=== PATIENT | male | born 1945 | race Caucasian/White ===

== ENCOUNTER 2017-06-19 18:04 | Emergency (ER) | payer MEDICARE, OTHER ==
--- NOTE | 2017-06-19 18:51 | ERPHSYRPT ---
<JOCY CROWELL - Last Filed: 06/19/17 20:03> - History of Present Illness Time Seen by Provider: 06/19/17 18:32 Allergies/Adverse Reactions: No Known Drug Allergies Allergy (Verified 06/19/17 18:21) Home Medications: Ascorbic Acid [Vitamin C] 500 mg PO DAILY 07/09/14 [History] Aspirin [Ecotrin] 81 mg PO DAILY 07/09/14 [History] Bioflav,Lemon/Vit Bcomp,C [Lipo-Flavonoid Plus Caplet] 3 - 4 each PO DAILY PRN 07/09/14 [History] Ca Citrate/Mgox/Vit D3/B6/Min [Citracal Plus Tablet] 1 each PO DAILY 07/09/14 [ History] Cetirizine HCl [Zyrtec] 10 mg PO DAILY PRN PRN 07/09/14 [History] Glucosamine/Methylsulfonylmeth [Glucosamine-MSM 500-400 mg Cap] 1 each PO DAILY 07/09/14 [History] Guaifenesin [Mucinex] 600 mg PO BID PRN 07/09/14 [History] Lisinopril [Zestril] 10 mg PO DAILY 07/09/14 [History] Loratadine [Claritin] 10 mg PO DAILY PRN PRN 07/09/14 [History] Montelukast Sodium [Singulair] 10 mg PO DAILY 07/09/14 [History] Multivitamin [Multivitamins] 1 each PO DAILY 07/09/14 [History] Omeprazole [Prilosec] 20 mg PO DAILY 07/09/14 [History] Saw [place] 160 mg PO BID 08/18/14 [History] Atorvastatin Calcium 20 mg PO DAILY 06/19/17 [History] Krill/[place]-3/Dha/Epa/Lipids [Krill Oil 350 mg Softgel] 1 cap PO DAILY 06/19/17 [History] Lutein 20 mg PO DAILY 06/19/17 [History] Mometasone Furoate [Nasonex] 2 spray NS DAILY 06/19/17 [History] Nabumetone 2 tab PO DAILY 06/19/17 [History] - Nursing Vital Signs Nursing Vital Signs: Initial Vital Signs Temperature 97.8 F 06/19/17 18:14 Pulse Rate 60 06/19/17 18:14 Respiratory Rate 16 06/19/17 18:14 Blood Pressure 153/88 06/19/17 18:14 O2 Sat by Pulse Oximetry 95 06/19/17 18:14 Pain Scale Pain Intensity 0 - Radiology Exams Chest X-ray Interpretation: Interpreted by me, No Pneumonia Ordered Tests: Active Orders 24 hr Category Date Time Status EKG-ER Only STAT Care 06/19/17 18:55 Active IV Insertion STAT Care 06/19/17 18:55 Active CHEST 2 VIEWS (PA AND LAT) Stat Exams 06/19/17 18:55 Taken CBC W DIFF Stat Lab 06/19/17 18:20 Completed CMP Stat Lab 06/19/17 18:20 Completed TROPONIN Q3H Lab 06/19/17 18:20 Completed Lab/Rad Data: Laboratory Result Diagrams 06/19/17 18:20 06/19/17 18:20 Laboratory Results 06/19/17 06/19/17 06/19/17 Range/Units 18:20 18:20 18:20 WBC 9.3 (4.0-10.5) K/mm3 RBC 4.95 (4.1-5.6) M/mm3 Hgb 15.9 (12.5-18.0) gm/dl Hct 47.1 (42-50) % MCV 95.2 (78-100) fl MCH 32.1 H (26-32) pg MCHC 33.8 (32-36) g/dl RDW 12.9 (11.5-14.0) % Plt Count 163 (150-450) K/mm3 MPV 10.2 H (6-9.5) fl Gran % 44.1 (36.0-66.0) % Lymphocytes % 44.3 H (24.0-44.0) % Monocytes % 9.8 (0.0-12.0) % Eosinophils % 1.4 (0.00-5.0) % Basophils % 0.4 (0.0-0.4) % Basophils # 0.04 (0-0.4) Sodium 142 (136-145) mEq/L Potassium 4.1 (3.5-5.1) mEq/L Chloride 106 (98-107) mEq/L Carbon Dioxide 26.3 (21-32) mEq/L Anion Gap 13.5 (5-15) MEQ/L BUN 16 (9-20) mg/dL Creatinine 1.13 (0.55-1.30) mg/dl Estimated GFR > 60 ML/MIN Glucose 117 H (70-110) MG/DL Calcium 9.0 (8.5-10.1) mg/dL Total Bilirubin 1.50 H (0.2-1.0) mg/dL AST 26 (15-37) U/L ALT 27 (12-78) U/L Alkaline Phosphatase 73 (46-116) U/L Troponin I < 0.017 (0.000-0.056) ng/ml Serum Total Protein 7.4 (6.4-8.2) gm/dL Albumin 3.9 (3.4-5.0) g/dL - Progress Progress Note: 06/19/17 19:[address] CROWELL AT 1931: PERRL, EOMI, PHARYNX PINK, LUNGS CLEAR, NO CARDIAC RUB, ABDOMINAL B.S. NORMAL, NO ANKLE EDEMA, ALERT & COOPERATIVE. PT STATES HIS RIGHT ANTERIOR CHEST PAIN RADIATING TO THE RIGHT MID BACK STARTED 3 HOURS AGO, LASTED 20 MINUTES, WAS ABATED BY DRINKING COLD WATER AND HAS NOT RETURNED. - Departure Time of Disposition: 20:04 Departure Disposition: Home Clinical Impression: CHEST PAIN Condition: Stable Critical Care Time: No Referrals: JOSE BATRES MD [Primary Care Provider] - Instructions: Chest Pain Additional Instructions: FOLLOW UP WITH PRIVATE DOCTOR TOMORROW. <JOCY NOLASCO. - Last Filed: 06/20/17 07:09> - History of Present Illness Historian: patient Exam Limitations: no limitations Patient Subjective Stated Complaint: Pt states approx 45-60 minutes ago he had sudden onset of right sided chest pain that radiated to his back. He thought it might be something he ate. It went away after drinking a cup of ice water. He has had the pain intermittently since then. Denies any sob, n/v, or diaphoresis. Triage Nursing Assessment: PT alert and oriented x3. skin pink warm and dry. afebrile. heart tones RRR. lung sounds clear. no edema noted Physician History: The patient is a 71-year-old male with his complaining of one episode of central chest pain today while sitting at the computer. He had eaten spicy chicken about one hour before the chest pain. He's had many episodes of similar chest pain over the years. The chest pain has always been relieved by drinking ice cold water. He said the chest pain evaluated by physician who told him it was nothing related to his heart. The reason he comes in today is that his noticed that he was in pain. He currently has no pain. He was not short of breath. He was not nauseated. He was not sweating. His past medical history is significant for hypertension, high cholesterol, asthma, and allergies. He had a stress test many years ago that was negative. Timing/Duration: today, resolved prior to arrival, sudden Activities at Onset: none Quality: sharpness Location: central Chest Pain Radiation: no radiation Severity of Pain-Max: moderate Severity of Pain-Current: none Modifying Factors: Improves With: other (drinking cold water) Associated Symptoms: denies symptoms Prior Chest Pain/Cardiac Workup: non-cardiac, stress test Nitro Today/Relief: no nitro taken today Aspirin Treatment Today: no aspirin today Hx Tetanus, Diphtheria Vaccination/Date Given: Yes Hx Influenza Vaccination/Date Given: No Hx Pneumococcal Vaccination/Date Given: Yes - Review of Systems Constitutional: No Fever, No Chills Eyes: No Symptoms Ears, Nose, & Throat: No Symptoms Respiratory: No Cough, No Dyspnea Cardiac: Chest Pain Abdominal/Gastrointestinal: No Symptoms Genitourinary Symptoms: No Dysuria Musculoskeletal: No Back Pain, No Neck Pain Skin: No Rash Neurological: No Dizziness, No Focal Weakness, No Sensory Changes Psychological: No Symptoms Endocrine: No Symptoms Hematologic/Lymphatic: No Symptoms Immunological/Allergic: No Symptoms All Other Systems: Reviewed and Negative - Past Medical History Pertinent Past Medical History: Yes Neurological History: No Pertinent History ENT History: No Pertinent History Cardiac History: Hypertension Respiratory History: Sleep Apnea Endocrine Medical History: No Pertinent History Musculoskeletal History: Arthritis, Osteoarthritis GI Medical History: GERD, Gallbladder Disease, Hemorrhoids History: No Pertinent History Psycho-Social History: No Pertinent History Male Reproductive Disorders: No Pertinent History - Past Surgical History Past Surgical History: Yes Neuro Surgical History: No Pertinent History Cardiac: No Pertinent History Respiratory: No Pertinent History Gastrointestinal: Cholecystectomy Genitourinary: No Pertinent History Musculoskeletal: Other Male Surgical History: No Pertinent History Other Surgical History: Disc in neck repaired. Colonsocopies - Social History Smoking Status: Never smoker Exposure to second hand smoke: No Drug Use: none Patient Lives Alone: No - Physical Exam General Appearance: no apparent distress, alert Eye Exam: PERRL/EOMI, eyes nml inspection Ears, Nose, Throat Exam: normal ENT inspection, moist mucous membranes Neck Exam: normal inspection, non-tender, supple, full range of motion Respiratory Exam: normal breath sounds, lungs clear, No respiratory distress Cardiovascular Exam: regular rate/rhythm, normal heart sounds Gastrointestinal/Abdomen Exam: soft, No tenderness, No mass Rectal Exam: not done Back Exam: normal inspection, No CVA tenderness, No vertebral tenderness Extremity Exam: normal inspection, normal range of motion Neurologic Exam: alert, oriented x 3, cooperative, normal mood/affect, sensation nml, No motor deficits Skin Exam: normal color, warm, dry SpO2 Interpretation: normal SpO2: 95 Oxygen Delivery: Room Air - Course EKG Interpreted by Me: RATE, Sinus Rhythm, NORMAL AXIS, NORMAL INTERVALS, NORMAL QRS, NORMAL ST-T Ordered Tests: Active Orders 24 hr Category Date Time Status EKG-ER Only STAT Care 06/19/17 18:55 Active IV Insertion STAT Care 06/19/17 18:55 Active CHEST 2 VIEWS (PA AND LAT) Stat Exams 06/19/17 18:55 Taken CBC W DIFF Stat Lab 06/19/17 18:20 Completed CMP Stat Lab 06/19/17 18:20 Completed TROPONIN Q3H Lab 06/19/17 18:20 Completed Lab/Rad Data: Laboratory Result Diagrams 06/19/17 18:20 06/19/17 18:20 Laboratory Results 06/19/17 06/19/17 06/19/17 Range/Units 18:20 18:20 18:20 WBC 9.3 (4.0-10.5) K/mm3 RBC 4.95 (4.1-5.6) M/mm3 Hgb 15.9 (12.5-18.0) gm/dl Hct 47.1 (42-50) % MCV 95.2 (78-100) fl MCH 32.1 H (26-32) pg MCHC 33.8 (32-36) g/dl RDW 12.9 (11.5-14.0) % Plt Count 163 (150-450) K/mm3 MPV 10.2 H (6-9.5) fl Gran % 44.1 (36.0-66.0) % Lymphocytes % 44.3 H (24.0-44.0) % Monocytes % 9.8 (0.0-12.0) % Eosinophils % 1.4 (0.00-5.0) % Basophils % 0.4 (0.0-0.4) % Basophils # 0.04 (0-0.4) Sodium 142 (136-145) mEq/L Potassium 4.1 (3.5-5.1) mEq/L Chloride 106 (98-107) mEq/L Carbon Dioxide 26.3 (21-32) mEq/L Anion Gap 13.5 (5-15) MEQ/L BUN 16 (9-20) mg/dL Creatinine 1.13 (0.55-1.30) mg/dl Estimated GFR > 60 ML/MIN Glucose 117 H (70-110) MG/DL Calcium 9.0 (8.5-10.1) mg/dL Total Bilirubin 1.50 H (0.2-1.0) mg/dL AST 26 (15-37) U/L ALT 27 (12-78) U/L Alkaline Phosphatase 73 (46-116) U/L Troponin I < 0.017 (0.000-0.056) ng/ml Serum Total Protein 7.4 (6.4-8.2) gm/dL Albumin 3.9 (3.4-5.0) g/dL - Progress Progress Note: 06/19/17 19:14 Pt care discussed and care transferred to Dr Crowell at 19:00. - Departure Departure Disposition: Home Critical Care Time: No
[2017-06-19 19:04] LABS: BASOPHIL % 0.4 % (0.0-0.4); Eosinophil % 1.4 % (0.00-5.0); Granulocytes % 44.1 % (36.0-66.0); Lymphocytes % 44.3 % (24.0-44.0); Mean Cell Volume 95.2 fl (78-100); Mean Corpuscular Hemoglobin 32.1 pg (26-32); Mean Platelet Volume 10.2 fl (6-9.5); Monocytes % 9.8 % (0.0-12.0); Platelet Count 163 K/mm3 (150-450); Red Blood Count 4.95 M/mm3 (4.1-5.6); Red Cell Distribution Width 12.9 % (11.5-14.0); White Blood Count 9.3 K/mm3 (4.0-10.5)
[2017-06-19 19:18] LABS: ALBUMIN 3.9 g/dL (3.4-5.0); ALKALINE PHOSPHATASE 73 U/L (46-116); ANION GAP 13.5 MEQ/L (5-15); BLOOD UREA NITROGEN 16 mg/dL (9-20); CHLORIDE 106 mEq/L (98-107); Carbon Dioxide 26.3 mEq/L (21-32); Glucose 117 MG/DL (70-110); Potassium 4.1 mEq/L (3.5-5.1); SGOT/AST 26 U/L (15-37); SGPT/ALT 27 U/L (12-78); SODIUM 142 mEq/L (136-145); Total Protein 7.4 gm/dL (6.4-8.2)
[2017-06-19 20:00] VITALS: BP 145/72; PULSE 53
[2017-06-20 07:10] VITALS: O2SAT 95
--- NOTE | 2017-06-20 08:49 | XRAY ---
Indication: Chest pain. Comparison: August 13, 2009. PA/lateral chest remains clear. Heart is not enlarged. Vascularity normal. Bony thorax intact again with mild degenerative changes. Impression: Stable nonacute chest.
== END 2017-06-19 20:11 | disposition home or self-care (01) ==
LOC: ED 18:04
DX: R07.89 Other chest pain (principal); I10 Essential (primary) hypertension; Z79.899 Other long term (current) drug therapy
CPT/HCPCS: 36000; 36415; 71020; 80053; 84484; 85025; 93005; 99284

== ENCOUNTER 2021-03-24 13:18 | Day surgery (SDC) | payer MEDICARE, OTHER ==
[2021-03-24] MEDS ORDERED: Depo-Medrol 40 MG/ML IM ONE (13:19)
[2021-03-24] MEDS ORDERED: Sodium Chloride 0.9(Preservative Free) 10 ML IJ ONE (13:19)
[2021-03-24] MEDS ORDERED: DIPRIVAN 200 MG/20 ML IV ONE (14:43)
[2021-03-24] MEDS ORDERED: Lactated Ringers 1,000 ML IV ONE (16:05)
--- NOTE | 2021-03-24 16:57 | XRAY ---
Indication: Right L4-S1 transforaminal JONATHAN. Intraoperative fluoroscopy provided for 24 seconds. 3 digital spot image submitted for interpretation demonstrate posterior needle tips projecting over the expected right L4 and L5 nerve roots. Small amount of contrast injected for needle tip placement. Correlate with intraoperative findings/report.
--- NOTE | 2021-03-24 17:14 | XRAY ---
24 seconds of fluoroscopy was used in surgery for a right L4-L5, L5-S1 transforaminal JONATHAN.
== END 2021-03-24 15:05 | disposition home or self-care (01) ==
LOC: SDC-PAIN 13:18
PROVIDERS: ATTEND Psychiatry & Neurology Pain Medicine
DX: M54.16 Radiculopathy, lumbar region (principal); I10 Essential (primary) hypertension; G47.30 Sleep apnea, unspecified; M19.90 Unspecified osteoarthritis, unspecified site; Z79.899 Other long term (current) drug therapy
CPT/HCPCS: 64483; 64484; 72100; 77003; J1030; J2704; Q9966

== ENCOUNTER 2021-04-28 12:09 | Day surgery (SDC) | payer MEDICARE, OTHER ==
[2021-04-28] MEDS ORDERED: BUPIVACAINE 0.5% VIAL IJ ONE (12:10)
[2021-04-28] MEDS ORDERED: Depo-Medrol 40 MG/ML IM ONE (12:10)
[2021-04-28] MEDS ORDERED: DIPRIVAN 200 MG/20 ML IV ONE (13:43)
--- NOTE | 2021-04-28 15:22 | XRAY ---
Indication: Right SI joint injection. Intraoperative fluoroscopy provided for 29 seconds. Single lateral digital spot image submitted for interpretation demonstrates posterior needle tip projecting mid sacrum level. Correlate with intraoperative findings/report.
[2021-04-28] MEDS ORDERED: Lactated Ringers 1,000 ML IV ONE (15:55)
--- NOTE | 2021-04-28 16:35 | XRAY ---
29 seconds fluoroscopy time I n surgery for injection of the right SI joint.
== END 2021-04-28 14:07 | disposition home or self-care (01) ==
LOC: SDC-PAIN 12:09
PROVIDERS: ATTEND Psychiatry & Neurology Pain Medicine
DX: M46.1 Sacroiliitis, not elsewhere classified (principal); Z79.899 Other long term (current) drug therapy
CPT/HCPCS: 27096; 72020; 77002; G0260; 99100; J1030; J2704

== ENCOUNTER 2021-05-12 10:15 | Day surgery (SDC) | payer MEDICARE, OTHER ==
[2021-05-12] MEDS ORDERED: BUPIVACAINE 0.5% VIAL IJ ONE (10:16)
[2021-05-12] MEDS ORDERED: Depo-Medrol 40 MG/ML IM ONE (10:16)
[2021-05-12] MEDS ORDERED: DIPRIVAN 200 MG/20 ML IV ONE (11:43)
[2021-05-12] MEDS ORDERED: Lactated Ringers 1,000 ML IV ONE (15:54)
--- NOTE | 2021-05-13 11:53 | XRAY ---
9 seconds of fluoroscopy was used in surgery for a right intra-articular hip injection.
--- NOTE | 2021-05-15 23:58 | XRAY ---
Indication: Right hip intra-articular injection. Intraoperative fluoroscopy was provided for 9 seconds. The spinal needle tip is seen projected over the lateral margin of the upper right femoral neck. A small amount of contrast has been injected for needle tip placement. Correlate with intraoperative findings/report.
== END 2021-05-12 12:05 | disposition home or self-care (01) ==
LOC: SDC-PAIN 10:15
PROVIDERS: ATTEND Psychiatry & Neurology Pain Medicine
DX: M16.11 Unilateral primary osteoarthritis, right hip (principal); Z79.899 Other long term (current) drug therapy
CPT/HCPCS: 20610; 73501; 77002; J1030; J2704; Q9966

== ENCOUNTER 2021-06-30 07:41 | Day surgery (SDC) | payer MEDICARE, OTHER ==
[2021-06-30] MEDS ORDERED: Depo-Medrol 40 MG/ML IM ONE (07:42)
[2021-06-30] MEDS ORDERED: BUPIVACAINE 0.5% VIAL IJ ONE (07:42)
[2021-06-30] MEDS ORDERED: DIPRIVAN 200 MG/20 ML IV ONE (08:41)
[2021-06-30] MEDS ORDERED: Lactated Ringers 1,000 ML IV ONE (16:09)
--- NOTE | 2021-07-01 11:18 | XRAY ---
11 seconds fluoroscopy time in surgery for intra-articular injection of the right hip.
--- NOTE | 2021-07-01 11:18 | XRAY ---
8 seconds fluoroscopy time in surgery for injection of the right SI joint.
--- NOTE | 2021-07-03 22:27 | XRAY ---
Indication: Right SI joint injection. Intraoperative fluoroscopy was provided for 8 seconds. 2 digital spot images submitted for interpretation demonstrate the posterior needle tip projected over the lower aspect of the right SI joint. Correlate with intraoperative findings/report.
--- NOTE | 2021-07-03 22:27 | XRAY ---
Indication: Right hip injection (prone). Intraoperative fluoroscopy was provided for 11 seconds. A single digital spot image submitted for interpretation demonstrates the posterior needle tip projected over the lateral margin of the right femoral neck. Some contrast has been injected for needle tip placement. Correlate with intraoperative findings/report.
== END 2021-06-30 09:10 | disposition home or self-care (01) ==
LOC: SDC-PAIN 07:41
PROVIDERS: ATTEND Psychiatry & Neurology Pain Medicine
DX: M46.1 Sacroiliitis, not elsewhere classified (principal); M16.11 Unilateral primary osteoarthritis, right hip; Z79.899 Other long term (current) drug therapy
CPT/HCPCS: 20610; 27096; 72020; 73501; 77002; J1030; J2704; Q9966; G0260

== ENCOUNTER 2021-07-28 10:18 | Day surgery (SDC) | payer MEDICARE, OTHER ==
[2021-07-28] MEDS ORDERED: BUPIVACAINE 0.5% VIAL IJ ONE (10:19)
[2021-07-28] MEDS ORDERED: Depo-Medrol 40 MG/ML IM ONE (10:19)
[2021-07-28] MEDS ORDERED: DIPRIVAN 200 MG/20 ML IV ONE (11:54)
--- NOTE | 2021-07-28 13:11 | XRAY ---
Indication: Bilateral greater trochanter bursa injections. Intraoperative fluoroscopy provided for 21 seconds. 2 digital spot image submitted for interpretation demonstrates needle tip projecting just lateral to the left and right greater trochanters. Small amount of contrast injected for both needle tip placement. Correlate with intraoperative findings/report.
--- NOTE | 2021-07-28 14:13 | XRAY ---
21 seconds of fluoroscopy was used in surgery for a bilateral greater trochanteric bursa injection.
[2021-07-28] MEDS ORDERED: Lactated Ringers 1,000 ML IV ONE (16:27)
== END 2021-07-28 12:29 | disposition home or self-care (01) ==
LOC: SDC-PAIN 10:18
PROVIDERS: ATTEND Psychiatry & Neurology Pain Medicine
DX: M70.62 Trochanteric bursitis, left hip (principal); M70.61 Trochanteric bursitis, right hip; Z79.899 Other long term (current) drug therapy
CPT/HCPCS: 20610; 73521; 77002; J1030; J2704; Q9966

== ENCOUNTER 2022-08-03 16:43 | Day surgery (SDC) | payer MEDICARE, OTHER ==
[2022-08-03] MEDS ORDERED: Depo-Medrol 40 MG/ML IM ONE (16:44)
[2022-08-03] MEDS ORDERED: BUPIVACAINE 0.5% VIAL IJ ONE (16:44)
[2022-08-03] MEDS ORDERED: Lactated Ringers 1,000 ML IV ONE (17:58)
[2022-08-03] MEDS ORDERED: DIPRIVAN 200 MG/20 ML IV ONE (18:41)
--- NOTE | 2022-08-03 19:21 | XRAY ---
Indication: Right SI joint and right hip injection. Intraoperative fluoroscopy provided for 18 seconds. 4 digital spot image submitted for interpretation demonstrates needle tip projecting projecting over the right SI joint s. Second needle tip lateral to the right femur neck with small amount of contrast injected for needle tip placement. Correlate with intraoperative findings/report.
--- NOTE | 2022-08-04 10:47 | XRAY ---
18 seconds of fluoroscopy was used in surgery for a right hip intra-articular injection and a right SI joint injection.
== END 2022-08-03 19:05 | disposition home or self-care (01) ==
LOC: SDC-PAIN 16:43
PROVIDERS: ATTEND Psychiatry & Neurology Pain Medicine
DX: M46.1 Sacroiliitis, not elsewhere classified (principal); M16.11 Unilateral primary osteoarthritis, right hip; Z79.899 Other long term (current) drug therapy
CPT/HCPCS: 01992; 20610; 27096; 73501; 76942; 77002; 99100; G0260; J1030; J2704; Q9966

== ENCOUNTER 2023-03-01 15:30 | Day surgery (SDC) | payer MEDICARE, OTHER ==
[2023-03-01] MEDS ORDERED: Depo-Medrol 40 MG/ML IM ONE (15:31)
[2023-03-01] MEDS ORDERED: BUPIVACAINE 0.5% VIAL IJ ONE (15:31)
[2023-03-01] MEDS ORDERED: DIPRIVAN 200 MG/20 ML IV ONE (17:09)
[2023-03-01] MEDS ORDERED: Lactated Ringers 1,000 ML IV ONE (17:44)
--- NOTE | 2023-03-01 22:00 | XRAY ---
Indication: Bilateral SI joint injection. Intraoperative fluoroscopy provided for 18 seconds. 4 digital spot image submitted for interpretation demonstrates posterior needle tip projecting over the left and right SI joints. Correlate with intraoperative findings/report.
== END 2023-03-01 17:40 | disposition home or self-care (01) ==
LOC: SDC-PAIN 15:30
PROVIDERS: ATTEND Psychiatry & Neurology Pain Medicine
DX: M46.1 Sacroiliitis, not elsewhere classified (principal); Z79.899 Other long term (current) drug therapy
CPT/HCPCS: 27096; 72202; 77002; G0260; 99100; J1030; J2704

== ENCOUNTER 2024-05-28 08:54 | Day surgery (SDC) | payer MEDICARE ==
[2024-05-28] MEDS ORDERED: Epinephrine Preservative Free 1 MG/ML IJ ONE (08:55)
[2024-05-28] MEDS ORDERED: MOXIFLOXACIN 4 MG/0.8 ML VIAL IO ONE (09:00)
[2024-05-28] MEDS ORDERED: BETADINE 5% OPHTHALMIC 30 ML OP ONE (09:00)
[2024-05-28] MEDS ORDERED: TRIAMCINOLONE 15 MG/ML INJ INTRAOP ONE (09:00)
[2024-05-28] MEDS ORDERED: Lactated Ringers 1,000 ML IV ONE (09:02)
[2024-05-28] MEDS: Lactated Ringers 1,000 ML IV SCH (09:17)
[2024-05-28] MEDS: TETRACAINE 0.5% STERI-UNIT SOL OP ONE ×2 (09:17→09:18)
[2024-05-28] MEDS: Ak-Dilate OPHTHALMIC*** 1.065 ML, Cyclogyl 1% OPHTH SOL 1.065 ML, GATIFLOXACIN 0.5% OPH... OP ONE (09:18)
[2024-05-28] MEDS ORDERED: Zofran 4 MG/2 ML VIAL IV PRN (11:00)
[2024-05-28] MEDS ORDERED: DIPRIVAN 200 MG/20 ML IV ONE (11:38)
[2024-05-28 12:07] VITALS: RESP 16; TEMP 97.2
[2024-05-28] MEDS: ACETAZOLAMIDE 250 MG TABLET PO ONE (12:19)
[2024-05-28 12:26] VITALS: BP 142/75; PULSE 50; O2SAT 95
== END 2024-05-28 12:39 | disposition home or self-care (01) ==
LOC: SDC 08:54
PROVIDERS: ATTEND Ophthalmology
DX: H25.812 Combined forms of age-related cataract, left eye (principal); E11.9 Type 2 diabetes mellitus without complications
CPT/HCPCS: 66982; 82947; 99100; C1780; J0171; J2704; A9270-GY

== ENCOUNTER 2025-01-22 14:07 | Day surgery (SDC) | payer MEDICARE ==
[2025-01-22] MEDS ORDERED: Sodium Chloride 0.9(Preservative Free) 10 ML IJ ONE (14:08)
[2025-01-22] MEDS ORDERED: dexAMETHasone sodium phosphate IJ ONE (14:08)
[2025-01-22] MEDS ORDERED: propofoL IV ONE (16:49)
[2025-01-22] MEDS ORDERED: MORPHINE SULFATE 2 MG INJ ONE (17:25)
[2025-01-22] MEDS ORDERED: Sodium Chloride 0.9% 10 ML FLUSH Syringe IV PRN (18:30)
[2025-01-22] MEDS ORDERED: MORPHINE SULFATE 2 MG INJ IV PRN (18:31)
[2025-01-22] MEDS ORDERED: Zofran 4 MG/2 ML VIAL IV PRN (18:32)
--- NOTE | 2025-01-22 20:47 | XRAY ---
Indication: Right L4-S1 transforaminal JONATHAN. Intraoperative fluoroscopy provided for 43 seconds. 5 digital spot image submitted for interpretation demonstrates posterior needle tips projecting over the expected right L4 and L5 nerve roots. Small amount of contrast injected for needle tip placement. Correlate with intraoperative findings/report.
[2025-01-22] MEDS ORDERED: ZOCOR 20MG ONE (21:44)
[2025-01-22] MEDS: LIPITOR 40MG PO ONE (21:49)
[2025-01-22] MEDS: ZOCOR 20MG PO SCH (21:51)
[2025-01-23 05:02] VITALS: BP 124/62; PULSE 67; TEMP 97.9; O2SAT 90
[2025-01-23 06:40] VITALS: RESP 18
--- NOTE | 2025-01-23 19:24 | XRAY ---
43 seconds of fluoroscopy was used in surgery for a right L4-S1 transforaminal JONATHAN.
== END 2025-01-23 06:45 | disposition home or self-care (01) ==
LOC: SDC-PAIN 14:07 → MED SURG 18:09 → SDC-PAIN 01-23 06:45
PROVIDERS: ATTEND Psychiatry & Neurology Pain Medicine
DX: M54.16 Radiculopathy, lumbar region (principal)
CPT/HCPCS: 64483; 64484; 72100; J1100; J2270; J2704; Q9966; A9270-GY

== ENCOUNTER 2025-02-05 13:47 | Day surgery (SDC) | payer MEDICARE ==
[2025-02-05] MEDS ORDERED: Sodium Chloride 0.9(Preservative Free) 10 ML IJ ONE (13:48)
[2025-02-05] MEDS ORDERED: Depo-Medrol 40 MG/ML IM ONE (13:48)
[2025-02-05] MEDS ORDERED: LIDOCAINE HCL 1% AMPUL 5 ML IJ ONE (13:48)
[2025-02-05] MEDS ORDERED: Lactated Ringers IV ONE (13:48)
[2025-02-05] MEDS ORDERED: dexAMETHasone sodium phosphate IJ ONE (13:48)
[2025-02-05] MEDS ORDERED: propofoL IV ONE (15:50)
--- NOTE | 2025-02-05 16:42 | XRAY ---
Indication: Caudal JONATHAN. Intraoperative fluoroscopy provided for 11 seconds. 2 digital spot images submitted for interpretation demonstrates caudal needle tip projecting mid sacrum. Small amount of contrast injected for needle tip placement. Correlate with intraoperative findings/report.
--- NOTE | 2025-02-05 16:44 | XRAY ---
Indication: Right piriformis injection. Intraoperative fluoroscopy provided for 6 seconds. Single digital spot image submitted for interpretation demonstrates posterior needle tip projecting over right piriformis. Small amount of contrast injected for needle tip placement. Correlate with intraoperative findings/report.
--- NOTE | 2025-02-05 17:20 | XRAY ---
6 seconds of fluoroscopy was used in surgery for a right piriformis injection.
--- NOTE | 2025-02-05 17:20 | XRAY ---
11 seconds of fluoroscopy was used in surgery for a caudal JONATHAN.
== END 2025-02-05 16:23 | disposition home or self-care (01) ==
LOC: SDC-PAIN 13:47
PROVIDERS: ATTEND Psychiatry & Neurology Pain Medicine
DX: M54.16 Radiculopathy, lumbar region (principal); M79.18 Myalgia, other site
CPT/HCPCS: 20552; 62323; 72170; 72220; 77002; 99100; J1100; J2704; Q9966